=== PATIENT | female | born 2000 | race Caucasian/White ===

== ENCOUNTER 2021-10-25 11:04 | Emergency (ER) | payer BC ==
[2021-10-25 11:11] VITALS: BP 123/79; PULSE 78; RESP 18; TEMP 98.7; BMI 28.3
[2021-10-25 11:44] LABS: EPI CELLS 17 /uL (0-25.1); HYALINE CASTS 0 /uL (0-3.1); URINE APPEARANCE CLEAR; URINE BACTERIA 814 /uL (0-1359); URINE BILIRUBIN NEGATIVE (NEGATIVE); URINE COLOR YELLOW; URINE GLUCOSE (UA) NEGATIVE (NEGATIVE); URINE KETONE 2+ (NEGATIVE); URINE LEUK ESTERASE TRACE (NEGATIVE); URINE NITRITE NEGATIVE (NEGATIVE); URINE PROTEIN NEGATIVE (NEGATIVE); URINE RBC 5 /uL (0-23.9); URINE UROBILINOGEN 0.2 mg/dL (0.2-1.0); URINE WBC 8 /uL (0-25.8)
== END 2021-10-25 12:06 | disposition home or self-care (01) ==
LOC: JERFT 11:04
DX: N30.90 Cystitis, unspecified without hematuria (principal)
CPT/HCPCS: 81003; 84703; 87086; 99283-25